=== PATIENT | male | born 1970 | race African-American/Black ===

== ENCOUNTER 2024-06-02 19:16 | Emergency (ER) | payer BC, SELFPAY ==
--- NOTE | ~2024-06-02 | US_ITS ---
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 TECHNIQUE: Grayscale images without and with compression and Doppler images of the bilateral lower ex tremity veins were obtained. COMPARISON: None FINDINGS: The right common femoral vein, profunda (deep) femoral vein, femoral vein, popliteal vein, peroneal v ein, posterior tibial veins, and greater saphenous vein are patent. Acute thrombus in the left posterior tibial vein. The left peroneal vein was not well visualized. The left common femoral vein, profunda (deep) femoral vein, femoral vein, popliteal vein, and greater s aphenous vein are patent. IMPRESSION: Acute thrombus in the left posterior tibial vein. Left peroneal veins not well visualized. No additional deep venous thrombosis detected in the remainder of the left lower extremity or the ent irety of the right lower extremity. Reviewed, dictated and finalized at location K. IMPRESSION: Acute thrombus in the left posterior tibial vein. Left peroneal veins not well visualized. No additional deep venous thrombosis detected in the remainder of the left lowe r extremity or the entirety of the right lower extremity.
[2024-06-02 19:24] VITALS: BP 170/88; PULSE 100; RESP 16; TEMP 36.2; O2SAT 99
--- NOTE | 2024-06-02 22:14 | ED.MALEGU ---
HPI - Male Genitourinary General Chief complaint: Urogenital-Male Stated complaint: Frequent urination Time Seen by Provider: 06/02/24 21:18 Source: patient Mode of arrival: ambulatory Limitations: no limitations History of Present Illness HPI Narrative: Patient presents with complaint of frequent urination of 1 week's duration and lower extremity swelling. He states overnight has not been as much of an issue but during the day it seems like he is having to urinate every hour. He states he is on amlodipine q.h.s. for hypertension as well as lisinopril and he believes that there may be another medication with his QAM lisinopril that could possibly be hydrochlorothiazide although he is not certain. He has been having numbness and burning in the bottom of his feet. For his diabetes he is on NovoLog 73 which he takes as 50 units in the morning and 30 units in the evening in addition to metformin 1000 mg b.i.d.. He denies running out this medication or missing doses. He states his blood sugars have been running 160-180 mg/dL lately. 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 Full lower extremity edema he has been trying compression stockings. He denies any fevers. No penile discharge. No flank pain. He denies any prior diagnosis of prostate issues in states he has prostate level checked when he last had blood work. He sees his primary care physician back home approximately every 90 days. Related Data Allergies Allergy/AdvReac Type Severity Reaction Status Date / Time No Known Allergies Allergy Verified 06/02/24 22:17 [facility] Past Medical History Medical History Hypertension Insulin dependent diabetes mellitus Social History Social History Additional living arrangements comments: In [place] Occupation/Education: occupation Additional occupation/education comments: transit bus driver, [employer] Exam Narrative: GENERAL: Well-appearing, well-nourished, and in no acute distress. HEAD: Normocephalic, atraumatic. EYES: Non injected, non icteric ENT: Nares clear, no rhinorrhea or epistaxis. NECK: Supple. CHEST: Speaking in full sentences. No respiratory distress. HEART: Regular rate and rhythm. . ABDOMEN: Soft, nondistended. EXTREMITIES: Normal range of motion. Bilateral 2+ lower extremity edema. SKIN: Warm, dry, no rash. NEURO: No focal deficits. Alert and oriented x3. PSYCH: Normal mood and affect. Course Vital Signs Vital signs: Vital Signs Temperature 97.2 F L 06/02/24 19:24 Pulse Rate 100 06/02/24 19:24 Respiratory Rate 16 06/02/24 19:24 Blood Pressure 170/88 H 06/02/24 19:24 Pulse Oximetry 99 06/02/24 19:24 Temperature 97.2 F L 06/02/24 19:24 Pulse Rate 87 06/03/24 00:57 Respiratory Rate 16 06/03/24 00:57 Blood Pressure 165/69 H 06/03/24 00:57 Pulse Oximetry 98 06/03/24 00:57 MDM - Male Genitourinary MDM Narrative Medical decision making narrative: Patient presents with complaint of frequent urination 1 weeks duration as well as bilateral lower extremity edema. He has a history of insulin-dependent diabetes mellitus and states he has been taking his medications as well as trying compression stockings for the swelling. In the emergency department he is afebrile with vital signs that show hypertension. Patient has 3+ proteinuria but otherwise does not appear nephrotic. Kidney function within normal limits and I presume this is secondary to his underlying DM. Similarly, the numbness and burning involves his feet likely represent peripheral neuropathy secondary to diabetes. Polyuria does not appear to be secondary to DKA has there is no anion gap or acidosis. No evidence of urinary tract infection on urinalysis. There is evidence of DVT on ultrasound. Although considered a distal DVT,
[2024-06-02 22:15] LABS: Basophils Absolute Auto 0.1 K/mm3 (0.0-0.1); Basophils Percent Auto 0.6 % (0.2-1.2); Eosinophils Absolute Auto 0.1 K/mm3 (0-0.3); Eosinophils Percent Auto 0.9 % (0-4.4); Hematocrit 37.1 % (42.0-52.0); Hemoglobin 12.9 g/dL (14.0-18.0); Immature Granulocyte Absolute 0.01 K/mm3 (0.00-0.031); Immature Granulocyte Percent A 0.1 % (0-0.5); Lymphocytes Absolute Auto 4.33 K/mm3 (0.9-3.2); Lymphocytes Percent Auto 52.8 % (18.3-44.2); Mean Corpuscular HGB Conc 34.8 g/dl (32-36); Mean Corpuscular Hemoglobin 30.7 pg (26-34); Mean Corpuscular Volume 88.3 fl (80-100); Mean Platelet Volume 10.4 fl (7.4-10.4); Monocytes Absolute Auto 0.8 K/mm3 (0.1-0.6); Monocytes Percent Auto 9.6 % (2.6-8.5); Platelet Count Result 220 k/mm3 (150-375); Red Cell Distribution Width 12.5 % (11.5-14.5); White Blood Count 8.2 K/mm3 (4.5-10.0)
[2024-06-02 22:23] LABS: Appearance Urine Clear (Clear); Bacteria Urine None Seen /hpf; Bilirubin Urine Negative (Negative); Blood Urine Negative (Negative); Color Urine Yellow (Yellow); Glucose Urine UA Negative (Negative); Ketones Urine Trace mg/dL (Negative); Leukocyte Esterase Ur Negative LEU/UL (Negative); Nitrate Urine Negative (Negative); Non Pathogenic Casts 0-2; Protein Urine 3+ mg/dL (Negative); RBC Urine 0-2 /hpf (0-2); Specific Grav Ur 1.017 (1.001-1.035); Squamous Epithelial Cell Urine None Seen /hpf (Few); WBC Urine 0-5 /hpf (0-3); pH Urine 5.5 (5.0-9.0)
[2024-06-02 22:25] LABS: INR 1.1; Partial Thromboplastin Time 24.5 Seconds (22.3-36.8)
[2024-06-02 22:26] LABS: Alanine Aminotransferase 35 U/L (6-50); Albumin Level 4.6 g/dL (3.5-5.1); Alkaline Phosphatase 91 U/L (38-126); Anion Gap 11 mmol/L (4-12); Aspartate Amino Transferase 33 U/L (17-59); Bilirubin,Total 0.4 mg/dL (0.2-1.3); Blood Urea Nitrogen 14 mg/dL (9-20); Calcium 9.6 mg/dL (8.4-10.2); Carbon Dioxide 27 mmol/L (22-30); Chloride 101 mmol/L (98-107); Estimated CRCL calculation 98 ml/min; Estimated Glomerular Filt Rate > 60; Glucose 129 mg/dL (65-110); Potassium 3.8 mmol/L (3.4-5.0); Sodium 139 mmol/L (137-145)
[2024-06-02 22:34] LABS: NT Pro B Type Natriuretic Pept 60 pg/mL (19.9-100)
[2024-06-02 22:44] LABS: D Dimer 0.29 ug/mL (<0.48)
[2024-06-02 22:46] LABS: Add Urine Microscopic? YES
[2024-06-02 23:22] LABS: Trichomonas Vag PCR NOT DETECTED (NOT DETECTE)
[2024-06-02 23:45] LABS: Chlamydia trachomatis NOT DETECTED (NOT DETECTE); Neisseria gonorrhoeae PCR NOT DETECTED (NOT DETECTE)
[2024-06-03] MEDS: RIVAROXABAN 15 MG TABLET PO (00:47)
[2024-06-03 00:57] VITALS: BP 165/69; PULSE 87; RESP 16; O2SAT 98
== END 2024-06-03 00:49 | disposition home or self-care (01) ==
PROVIDERS: Emergency Provider Student in an Organized Health Care Education/Training Program
DX: I82.442 Acute embolism and thrombosis of left tibial vein (principal); E11.42 Type 2 diabetes mellitus with diabetic polyneuropathy; E11.29 Type 2 diabetes mellitus with other diabetic kidney complication; R80.9 Proteinuria, unspecified; D64.9 Anemia, unspecified; R35.0 Frequency of micturition; I10 Essential (primary) hypertension; Z79.899 Other long term (current) drug therapy; Z79.4 Long term (current) use of insulin
CPT/HCPCS: 36415; 80053; 81001; 83880; 85025; 85380; 85610; 85730; 87491; 87591; 87661; 93970; 99284; A9270